=== PATIENT | male | born 1955 | race Caucasian/White ===

== ENCOUNTER 2021-11-07 11:09 | Outpatient (REF) | payer OTHER, SELFPAY ==
[2021-11-07 11:57] LABS: Alanine Aminotransferase 23 U/L (0-40); Albumin Level 4.5 g/dL (3.5-5.0); Alkaline Phosphatase 41 U/L (39-117); Aspartate Amino Transferase 26 U/L (5-37); Bilirubin Direct 0.3 mg/dL (0.0-0.5); Bilirubin Total 0.6 mg/dL (0.0-1.0); Total Protein 7.3 g/dL (6.5-8.0)
[2021-11-12 15:36] LABS: FIB-ALT 21 U/L (9-46); FIB-Alpha-2-Macroglobulin 151 mg/dL (106-279); FIB-Apolipoprotein A1 131 mg/dL (94-176); FIB-GGT 9 U/L (3-70); FIB-Haptoglobin 173 mg/dL (43-212); FIB-Total Bilirubin 0.6 mg/dL (0.2-1.2); Liver Fibrosis Score 0.14; Liver Fibrosis Stage F0; Nec Inflam Act Grade A0; Nec Inflam Act Score 0.07
== END 2021-11-07 11:10 | disposition home or self-care (01) ==
LOC: HO.LAB 11:09
PROVIDERS: PCP Family Medicine; Visit Provider Internal Medicine
DX: K70.9 Alcoholic liver disease, unspecified (principal)
CPT/HCPCS: 36415; 80076; 81596; 82105